=== PATIENT | female | born 1995 | race Caucasian/White ===

== ENCOUNTER 2023-05-28 17:24 | Inpatient (IN) | payer BC ==
[~2023-05-28] VITALS: Ht 175.3 cm; Wt 99.3 kg
[2023-05-28] MEDS ORDERED: NS 1,000 ML IV ONE (19:15)
[2023-05-28 19:36] LABS: COLLECTION METHOD CLEAN CATCH
[2023-05-28 19:39] LABS: BASO % 0.2 % (0.0-2.0); EOS % 0.1 % (0.0-4.0); GRAN % 80.8 % (42.2-75.2); HEMATOCRIT 39.6 % (37.0-47.0); HEMOGLOBIN 13.2 g/dl (12.5-16.0); LYMPH # 2.1 K/mm3 (1.2-3.4); LYMPH % 13.2 % (20.0-51.0); MEAN CELL VOLUME 91 fl (80.0-100.0); MEAN CORPUSCULAR HEMOGLOBIN 30 pg (27-31); MEAN CORPUSCULAR HGB CONC 33 g/dl (33.0-37.0); MEAN PLATELET VOLUME 9.5 fl (7.4-10.4); MONO # 0.9 K/mm3 (0.1-0.6); MONO % 5.4 % (1.7-9.3); PLATELET COUNT 342 K/mm3 (130-400); RED BLOOD COUNT 4.37 M/mm3 (4.10-5.30); REDCELL DISTRIBUTION WIDTH-CV 12.9 % (11.5-14.5)
[2023-05-28 19:42] LABS: PH 5.5 (5.0-8.5); URINE APPEARANCE CLOUDY (CLEAR/HAZY); URINE BLOOD NEGATIVE (NEGATIVE); URINE COLOR Dark Yellow (YELLOW); URINE GLUCOSE NEGATIVE (NEGATIVE); URINE KETONE TRACE (NEGATIVE); URINE NITRATE NEGATIVE (NEGATIVE); URINE PROTEIN(semi-quant) 1+ (NEGATIVE); URINE UROBILINOGEN 0.2 E.U/dL (0.2-1.0)
[2023-05-28 20:01] LABS: ALBUMIN 3.9 g/dL (3.5-5.0); BILIRUBIN,TOTAL 0.6 mg/dL (0.2-1.2); CALCIUM 9.8 mg/dL (8.4-10.2); CREATININE, serum 0.81 mg/dL (0.57-1.11); POTASSIUM 4.3 mEq/L (3.5-4.5); TOTAL PROTEIN 7.7 g/dl (6.2-8.1)
[2023-05-28 20:04] LABS: MUCOUS PRESENT (NOT PRESENT); URINE RBC 0-2 /hpf (0-2); URINE WBC 0-2 /hpf (0-2)
[2023-05-28 20:05] LABS: URINE BACTERIA RARE /hpf (NONE SEEN)
[2023-05-28] MEDS ORDERED: Iohexol 300 - 100 ML VIAL IV ONE (20:15)
[2023-05-28] MEDS ORDERED: NS 100 ML IV SCH (20:16)
[2023-05-28] MEDS ORDERED: HYDROmorphone 0.5 MG/0.5 ML SYRINGE IV PRN (21:15)
[2023-05-28] MEDS ORDERED: Ondansetron 4 MG/2 ML VIAL IV PRN (21:15)
[2023-05-28] MEDS ORDERED: LR 1,000 ML IV SCH (21:15)
[2023-05-28] MEDS ORDERED: LINZESS72 MCG PO (23:39)
[2023-05-28] MEDS ORDERED: BRINTELLIX20 PO (23:40)
[2023-05-28] MEDS ORDERED: AMETHYST 20 MCG1 TAB PO (23:42)
[2023-05-28] MEDS ORDERED: ADDERALL XR20 MG PO (23:43)
[2023-05-28] MEDS ORDERED: PROTONIX20 MG PO (23:44)
[2023-05-29] VITALS (9 sets, daily range): BP systolic 105–119; BP diastolic 65–75; PULSE 71–94; TEMP 98–99.7
--- NOTE | 2023-05-29 00:20 | NUR ---
Report recievied from DENILSON Treviño.
--- NOTE | 2023-05-29 01:50 | NUR ---
Patient arrived to the unit at this time with personal belongings. Patient rates her pain at 2/10 in her mid to low back. Water provided. Assessment and med rec complete. IV in right AC infusing with no complications. Oriented patient to room, call light, bed, phone, and bathroom. Call light and personal items in reach. Bed in low position.
--- NOTE | 2023-05-29 06:15 | NUR ---
Patient resting in bed. States she still has some rib pain but denies needs for pain meds at this time. No changes over night. Call light and personal items in reach. Bed in low position.
[2023-05-29 07:05] LABS: BASO % 0.3 % (0.0-2.0); EOS % 0.4 % (0.0-4.0); GRAN # 4.8 K/mm3 (1.4-6.5); GRAN % 63.6 % (42.2-75.2); HEMOGLOBIN 11.4 g/dl (12.5-16.0); LYMPH # 1.9 K/mm3 (1.2-3.4); LYMPH % 25.4 % (20.0-51.0); MEAN CELL VOLUME 89 fl (80.0-100.0); MEAN CORPUSCULAR HEMOGLOBIN 30 pg (27-31); MEAN CORPUSCULAR HGB CONC 33 g/dl (33.0-37.0); MEAN PLATELET VOLUME 9.8 fl (7.4-10.4); MONO # 0.8 K/mm3 (0.1-0.6); MONO % 9.9 % (1.7-9.3); RED BLOOD COUNT 3.87 M/mm3 (4.10-5.30); REDCELL DISTRIBUTION WIDTH-CV 13.2 % (11.5-14.5)
[2023-05-29 07:07] LABS: HEMATOCRIT 34.3 % (37.0-47.0)
[2023-05-29 07:08] LABS: PLATELET COUNT 236 K/mm3 (130-400)
[2023-05-29 07:30] LABS: ALBUMIN 3.2 g/dL (3.5-5.0); BILIRUBIN,TOTAL 1.5 mg/dL (0.2-1.2); CALCIUM 8.6 mg/dL (8.4-10.2); CREATININE, serum 0.81 mg/dL (0.57-1.11); TOTAL PROTEIN 6.2 g/dl (6.2-8.1)
[2023-05-29] MEDS ORDERED: ZOFRAN ODT4 MG PO (08:16)
--- NOTE | 2023-05-29 08:30 | NUR ---
pt a&ox4 resting in bed. rates pain a 07/15, dilaudid given per emar. vss. pt NPO for potential surgery today. zosyn infusing into right ac IV. pt denies needs at this time. call light in reach.
--- NOTE | 2023-05-29 10:45 | NUR ---
LM for dr hinojosa about consult on pt.
--- NOTE | 2023-05-29 11:29 | NUR ---
D: Initial visit: Pe Electrical Engineer stopped by room on rounds. A: Pt was resting and content with mom in the room. Pt has no needs right now. Both appreciated the visit. P: Pe Electrical Engineer informed pt that if she needed anything from the er registrar area to let her nurse know. Pe Electrical Engineer will follow up as needed.
--- NOTE | 2023-05-29 12:05 | NUR ---
Statistical Clerk Advertising met with patient and her mother Sharon ([phone]) to discuss discharge planning. Patient verified that she lives at home alone in [place]. She lists her mother Sharon and sister Brittani ([phone]) as contacts. Patient denies having a DPOA and states she is not interested in completing one at this time. Patient stated she will have her mother make decisions for her. Patient sees Dr. Antonia Reyes as her PCP and uses [facility]. Patient is active and independent and uses no DME. Patient states she is employed at [employer]. Patient does not identify any discharge needs. Discharge Plan: Home
--- NOTE | 2023-05-29 12:53 | NUR ---
attempted to call dr rm for GI consult, no answered. will attempt to call again.
[2023-05-29] MEDS ORDERED: TRINTELLIX 20 MG PO SCH (14:53)
[2023-05-29] MEDS ORDERED: LINZESS 72 MCG PO SCH (14:57)
[2023-05-29] MEDS ORDERED: AMETHYST PO SCH (14:58)
--- NOTE | 2023-05-29 20:23 | NUR ---
PT IN BED, HAD EATEN MOST OF DINNER, NOW COMPLAINS OF ABD PAIN 5/10, ASKING FOR DILAUDID. MEDICATED AT THIS TIME. HAS IVF TO RAC INFUSING WITHOUT PROBLEM. INDEPENDENT IN ROOM. DENIES NAUSEA AT THIS TIME.
--- NOTE | 2023-05-29 23:49 | NUR ---
PT ASKING FOR PAIN MEDS, 07/15 TO ABD, DILAUDID 0.5MG IVP GIVEN NOW.
[2023-05-30] VITALS (12 sets, daily range): BP systolic 100–120; BP diastolic 65–75; PULSE 70–86; TEMP 98.4–99.9
--- NOTE | 2023-05-30 03:31 | NUR ---
PT REPORTS PAIN TO ABD 6/10, DILAUDID 0.5MG IVP GIVEN. ANTIBIOTIC COMPLETE, IVF RESUMED AT 75CC/HR TO RAC.
--- NOTE | 2023-05-30 06:29 | NUR ---
Medicated with Dilaudid 0.5mg IVP for abd pain. Is NPO for MRCP.
--- NOTE | 2023-05-30 07:50 | NUR ---
pt a&ox4 resting in bed. vss. pt reports pain a 04/14. denies nausea/vomiting. pt NPO for MRCP this morning. pt denies needs at this time. call light in reach.
--- NOTE | 2023-05-30 08:10 | NUR ---
pt awake resting in bed. morning meds given as well as tylenol for fever. pt denies pain. dressing to right foot is cdi. pt denies needs at this time. call light in reach.
[2023-05-30] MEDS ORDERED: Patient's Own Medication Item PO SCH ×3 (09:00)
--- NOTE | 2023-05-30 10:42 | NUR ---
pt off floor for MRI
--- NOTE | 2023-05-30 11:07 | NUR ---
pt back in room from procedure
[2023-05-30] MEDS ORDERED: FLONASE NASAL S16 GM NS (12:16)
[2023-05-30 13:22] LABS: BILIRUBIN,DIRECT 0.6 mg/dL (0.0-0.5); BILIRUBIN,TOTAL 1.1 mg/dL (0.2-1.2); TOTAL PROTEIN 6.1 g/dl (6.2-8.1)
[2023-05-30] MEDS ORDERED: oxyCODONE/Acetaminophen 5-325 MG TAB PO PRN (14:00)
--- NOTE | 2023-05-30 20:08 | NUR ---
PT'S ANTIBIOTIC COMPLETE. RESUMED IVF TO RAC. MEDICATED WITH PERCOCET 1 TAB PO FOR ABD PAIN. PT IS INDEPENDENT IN ROOM. WILL BE NPO AT MIDNIGHT FOR SURGERY TOMORROW AFTERNOON. PT AWARE. VISITORS AT BEDSIDE.
[2023-05-31] VITALS (19 sets, daily range): BP systolic 101–124; BP diastolic 6–86; PULSE 72–100; TEMP 97.7–9737
--- NOTE | 2023-05-31 00:01 | NUR ---
IV ANTIBIOTIC INFUSING WITHOUT PROBLEM. MEDICATED WITH PERCOCET 1 TAB FOR ABD PAIN. PT WILL BE NPO.
--- NOTE | 2023-05-31 01:22 | NUR ---
PT STILL COMPLAINS OF PAIN, REPEATED PERCOCET AT THIS TIME.
--- NOTE | 2023-05-31 04:00 | NUR ---
IV ANTIBIOTIC COMPLETE, RESUMED IVF TO RAC. HAS TAKEN PAIN MEDS WITH SMALL SIPS OF WATER. NPO FOR SURGERY TODAY AT 1430.
--- NOTE | 2023-05-31 05:31 | NUR ---
MEDICATED WITH PERCOCET 1 PO FOR ABD PAIN.
--- NOTE | 2023-05-31 07:45 | NUR ---
Pt. sitting up in bed. Pt. is A&OX3, assessment complete. IV to rt. ac patent, IV fluids infusing per orders. Pt. reports pain at 4 on pain scale. Will give pain meds per orders. Pt. denies further needs, call light within reach.
[2023-05-31] MEDS ORDERED: Indocyanine Green 12.5 MG in Water For Injection,Sterile 2.5 ML IV SCH (08:00)
[2023-05-31] MEDS ORDERED: LR 1,000 ML IV SCH (09:30)
[2023-05-31] MEDS ORDERED: Lidocaine PF 2% (20 MG/ML) 5 ML VIAL ONE (10:58)
[2023-05-31] MEDS ORDERED: Rocuronium 50 MG/5 ML Multi-Dose VIAL ONE (10:58)
[2023-05-31] MEDS ORDERED: fentaNYL 50 MCG/ML 5 ML VIAL ONE (10:58)
[2023-05-31] MEDS ORDERED: Ondansetron 4 MG/2 ML VIAL ONE (10:59)
[2023-05-31] MEDS ORDERED: Ketorolac 30 MG/ML VIAL ONE (10:59)
[2023-05-31] MEDS ORDERED: dexAMETHasone 10 MG/ML VIAL ONE (10:59)
[2023-05-31] MEDS ORDERED: Glycopyrrolate 0.2 MG/ML 1 ML VIAL ONE (10:59)
[2023-05-31] MEDS ORDERED: NS 10 ML IV ONE (10:59)
--- NOTE | 2023-05-31 11:45 | NUR ---
Initial visit; Patient thanked for looking in on her and states that she is doing well. mentioned she is in good hands with her Dr. and glad she has such good family spport.
[2023-05-31 13:01] LABS: BASO % 0.3 % (0.0-2.0); EOS # 0.1 K/mm3 (0.0-0.7); GRAN # 5.7 K/mm3 (1.4-6.5); GRAN % 63.2 % (42.2-75.2); HEMOGLOBIN 10.2 g/dl (12.5-16.0); LYMPH # 2.4 K/mm3 (1.2-3.4); LYMPH % 26.8 % (20.0-51.0); MEAN CELL VOLUME 92 fl (80.0-100.0); MEAN CORPUSCULAR HEMOGLOBIN 29 pg (27-31); MEAN CORPUSCULAR HGB CONC 32 g/dl (33.0-37.0); MEAN PLATELET VOLUME 9.8 fl (7.4-10.4); MONO # 0.8 K/mm3 (0.1-0.6); MONO % 8.3 % (1.7-9.3); PLATELET COUNT 264 K/mm3 (130-400); RED BLOOD COUNT 3.47 M/mm3 (4.10-5.30); REDCELL DISTRIBUTION WIDTH-CV 13.3 % (11.5-14.5)
[2023-05-31 13:26] LABS: ALBUMIN 2.8 g/dL (3.5-5.0); CREATININE, serum 0.7 mg/dL (0.57-1.11); POTASSIUM 3.7 mEq/L (3.5-4.5); TOTAL PROTEIN 6.1 g/dl (6.2-8.1)
[2023-05-31] MEDS ORDERED: PERCOCET 325 MG1 TA2 PO (15:56)
[2023-05-31] MEDS ORDERED: MOTRIN 600600 MG/TAB PO (15:57)
[2023-05-31] MEDS ORDERED: droPERidol 2.5 MG/ML 2 ML VIAL IV PRN (16:00)
[2023-05-31] MEDS ORDERED: hydrALAZINE 20 MG/ML 1 ML VIAL IV PRN (16:00)
[2023-05-31] MEDS ORDERED: Ondansetron 4 MG/2 ML VIAL IV PRN (16:00)
[2023-05-31] MEDS ORDERED: HYDROmorphone 1 MG/1 ML SYRINGE [PACU/SDC ONLY] IV PRN (16:00)
[2023-05-31] MEDS ORDERED: fentaNYL 50 MCG/ML 1 ML SYRINGE/VIAL [PACU/SDC ONLY] IV PRN (16:00)
[2023-05-31] MEDS ORDERED: Topical Skin Adhesive 1 EACH (1 ML) TOP ONE (16:07)
[2023-05-31] MEDS ORDERED: Iohexol 350 - 100 ML VIAL BILE DUCT ONE ×2 (16:07)
[2023-05-31] MEDS ORDERED: NS 10 ML VIAL ICA ONE ×2 (16:07)
[2023-05-31] MEDS ORDERED: Amoxicillin/Clavulanate K+ 875/125 MG TAB PO SCH (18:03)
[2023-05-31] MEDS ORDERED: AMOXICILLIN 8751 TAB PO (18:04)
--- NOTE | 2023-05-31 18:45 | NUR ---
Pt. to the floor at this time. Bedside shift report recieved. vitals wnl. Pt. reports pain to abd. at a 5 on pain scale. Call light within reach.
[2023-05-31] MEDS ORDERED: Home oxyCODONE/Acetaminophen 5/325 MG #4 TAB/PACK PO ONE (21:30)
--- NOTE | 2023-05-31 23:15 | NUR ---
Pt escorted off floor at this time by PCT Grupo in wheelchair in stable condition escorted by family. Report give to primary nurse DENILSON Davidson.
--- NOTE | 2023-05-31 23:20 | NUR ---
PT STABLE POST SURGERY. VSS. PT GIVEN PERCOCET FOR ABD PAIN. PAIN MEDICATION EFFECTIVE PER PT. PT DENIED CHEST PAIN, PALPITATIONS, SOB, N,V,D OR DIZZINESS. PT GIVEN HOME PACK (PERCOCET X 4) AND THE HOME MEDS, SHE BROUGHT IN. PT ABLE TO EAT, DRINK, AMBULATE, AND USE THE RESTROOM WITH NO ISSUES. DISCHARGE PAPERWORK AND INSTRUCTIONS REVIEWED WITH PT AND FAMILY. ALL QUESTIONS AND CONCERNS ADDRESSED. IV TO RA D/C'ed WITH CATHETER TIP INTACT. PT DENIED PAIN AT DISCHARGE. SURGICAL SITES CDI. PT WHEELED OUT OF THE FACILITY BY AID WITH FAMILY BY HER SIDE.
[2023-06-01 09:23] LABS: BILIRUBIN,TOTAL 0.6 mg/dL (0.2-1.2)
== END 2023-05-31 23:20 | disposition home or self-care (01) | DRG 419 ==
LOC: COL.ER 17:24 → SURG 21:05
PROVIDERS: Internal Medicine Gastroenterology; Physician Assistant; ADMIT Surgery
PROC: BF13YZZ Fluoroscopy of Gallbladder and Bile Ducts using Other Contrast (ICD-10-PCS; 2023-05-31)
PROC: 8E0W4CZ Robotic Assisted Procedure of Trunk Region, Percutaneous Endoscopic Approach (ICD-10-PCS; 2023-05-31)
PROC: 0FT44ZZ Resection of Gallbladder, Percutaneous Endoscopic Approach (ICD-10-PCS; principal; 2023-05-31 14:30)
DX: K80.42 Calculus of bile duct with acute cholecystitis without obstruction (principal); J45.909 Unspecified asthma, uncomplicated; D64.9 Anemia, unspecified; F90.9 Attention-deficit hyperactivity disorder, unspecified type; J30.2 Other seasonal allergic rhinitis; Z90.79 Acquired absence of other genital organ(s)
CPT/HCPCS: G0378; J0690; J1100; J1170; J1885; J2405; J2543; J2704; J3010; J7030; J7120; Q9967

== ENCOUNTER → 2023-11-26 | Outpatient (CLI) | payer BC ==
[~2023-11-26] MED LIST: ADDERALL XR20 MG PO; AMETHYST 20 MCG1 TAB PO; AMOXICILLIN 8751 TAB PO; BRINTELLIX20 PO; FLONASE NASAL S16 GM NS; LINZESS72 MCG PO; MOTRIN 600600 MG/TAB PO; PERCOCET 325 MG1 TA2 PO; PROTONIX20 MG PO; ZOFRAN ODT4 MG PO
== END ==
LOC: COL.RAD 14:16
DX: C56.2 Malignant neoplasm of left ovary (principal); Z90.721 Acquired absence of ovaries, unilateral